=== PATIENT | male | born 1940 | race Caucasian/White ===

== ENCOUNTER 2021-06-08 18:04 | Emergency (ER) | payer MEDICARE, OTHER ==
[2021-06-08] MEDS ORDERED: Sodium Chloride 0.9% 10 ML Syringe FLUSH PRN (18:12)
--- NOTE | 2021-06-08 18:26 | EDM.PDOC ---
ED HPI GENERAL MEDICAL PROBLEM - General Stated Complaint: NO FEELING IN LEFT ARM (NUMB) Time Seen by Provider: 06/08/21 18:37 - History of Present Illness INITIAL COMMENTS - FREE TEXT/NARRATIVE: Pt. presents to ER with complaints of vertigo and lack of coordination in L upper extremity. Pt. states that he noticed the symptoms at around 11:00 this AM. He states that he had to drive [place] portion [place] the [place] and when he stopped to get something from his wallet, he had troubles removing the object. He states that he also notes problems with balance, particularly when he closes his eyes. He was witnessed stumbling in ER when he removed a shirt over his head. Denies any numbness in the extremity. Denies any facial droop. He has not had any problems with dysarthria or aphasia. Pt. denies any recent head trauma. No neck pain. 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 Denies any acute vision loss or change. Pt. denies any history of cerebrovascular disease. He states that he has a history of diabetes, asthma, and COPD, but is unable to recall the names. He is not currently anticoagulated. Onset: Today Onset Date: 06/08/21 Location: Reports: Head, Generalized - Related Data Allergies Allergy/AdvReac Type Severity Reaction Status Date / Time No Known Allergies Allergy Verified 06/08/21 18:11 ED ROS GENERAL - Review of Systems Review Of Systems: See Below Constitutional: Reports: No Symptoms HEENT: Reports: No Symptoms Respiratory: Reports: No Symptoms Cardiovascular: Reports: No Symptoms Endocrine: Reports: No Symptoms GI/Abdominal: Reports: No Symptoms : Reports: No Symptoms Musculoskeletal: Reports: No Symptoms Skin: Reports: No Symptoms Neurological: Reports: Dizziness, Other (lack of coordination, L upper extremity.). Denies: Confusion, Headache, Numbness, Paresthesia, Pre-Existing Deficit, Seizure, Syncope, Tingling, Tremors, Trouble Speaking, Difficulty Walking, Weakness, Change in Speech, Gait Disturbance Psychiatric: Reports: No Symptoms Hematologic/Lymphatic: Reports: No Symptoms Immunologic: Reports: No Symptoms ED EXAM, GENERAL - Physical Exam Exam: See Below Exam Limited By: No Limitations General Appearance: Alert, WD/WN, No Apparent Distress Eye Exam: Bilateral Eye: EOMI Head: Atraumatic, Normocephalic Neck: Normal Inspection, Supple, Non-Tender, Full Range of Motion Respiratory/Chest: No Respiratory Distress, Lungs Clear, No Accessory Muscle Use, Chest Non-Tender, Decreased Breath Sounds Cardiovascular: Regular Rate, Rhythm, No Edema, No JVD, No Murmur, No Rub Peripheral Pulses: 4+: Radial (L) GI/Abdominal: Soft, Non-Tender, No Distention, No Mass (Male) Exam: Deferred Rectal (Males) Exam: Deferred Back Exam: Normal Inspection, Full Range of Motion Extremities: Normal Inspection, Normal Range of Motion, Non-Tender, No Pedal Edema, Normal Capillary Refill Neurological: Alert, Oriented, CN II-XII Intact, Normal Cognition, Normal Gait, Normal Reflexes, No Motor/Sensory Deficits, Sensory/Motor Deficit, Other (lack of coordination with finger to nose L upper extremity) Psychiatric: Normal Affect, Normal Mood Skin Exam: Warm, Dry, Intact, Normal Color, No Rash #1 Interpretation Rhythm: NSR [place]: Normal P-Wave: Present QRS: Normal ST-T: Normal QT: Normal Course - Vital Signs Last Recorded V/S: Last Vital Signs Temp 37.0 C 06/08/21 18:37 Pulse 73 06/08/21 18:37 Resp 18 06/08/21 18:37 BP 137/78 06/08/21 18:37 Pulse Ox 97 06/08/21 18:37 - Orders/Labs/Meds Orders: Active Orders 24 hr Category Date Time Status Ang Head [CT] Stat Exams 06/08/21 19:51 Ordered Ang Neck [CT] Stat Exams 06/08/21 19:52 Ordered Sodium Chloride 0.9% [Saline Flush] Med 06/08/21 18:12 Active 10 ml FLUSH ASDIRECTED PRN Peripheral IV Insertion Adult [OM.PC] Routine Oth 06/08/21 18:12 Ordered Medication Orders Sodium Chloride (Sodium Chloride 0.9% 10 Ml Syringe) 10 ml FLUSH ASDIRECTED PRN PRN Reason: Keep Vein Open Labs: Laboratory Tests 06/08/21 06/08/21 06/08/21 Range/Units 18:20 18:20 18:27 WBC 7.0 (4.0-10.0) x10^3/uL RBC 4.63 (4.5-6.0) x10^6/uL Hgb 14.3 (14.0-18.0) g/dL Hct 42.7 (40.0-52.0) % MCV 92.2 (78.0-93.0) fL MCH 30.9 (26.0-32.0) pg MCHC 33.5 (32.0-36.0) g/dL RDW Coeff of Elvis 13.2 (10.0-15.0) % Plt Count 218 (130-400) x10^3/uL Immature Gran % (Auto) 0.40 (0.00-0.43) % Neut % (Auto) 52.1 (50.0-80.0) % Lymph % (Auto) 29.3 (25.0-50.0) % [place] % (Auto) 12.3 H (2.0-11.0) % Eos % (Auto) 5.3 H (0.0-4.0) % Baso % (Auto) 0.6 (0.2-1.2) % Neut # (Auto) 3.7 (1.8-7.7) x10^3/uL Lymph # (Auto) 2.1 (1.0-4.8) x10^3/uL [place] # (Auto) 0.9 H (0.0-0.8) x10^3/uL Eos # (Auto) 0.4 (0.0-0.5) x10^3/uL Baso # (Auto) 0.0 (0.0-0.2) x10^3/uL Immature Gran # (Auto) 0.03 (0.00-0.07) x10^3/uL PT 9.9 (9.9-12.5) SEC INR 0.9 L (2.0-3.5) Sodium 143 (136-145) mmol/L Potassium 4.0 (3.5-5.1) mmol/L Chloride 107 (98-107) mmol/L Carbon Dioxide 28 (21-32) mmol/L Anion Gap 12.0 (5-15) mmol/L BUN 26 H (7-18) mg/dL Creatinine 1.0 (0.70-1.30) mg/dL Est Cr Clr Drug Dosing 65.74 mL/min Estimated GFR (MDRD) > 60 Glucose 135 H (70-99) mg/dL Calcium 9.4 (8.5-10.1) mg/dL Corrected Calcium 10.0 (8.5-10.1) mg/dL Phosphorus 2.4 L (2.6-4.7) mg/dL Magnesium 1.9 (1.8-2.4) mg/dL Total Bilirubin 0.2 (0.2-1.0) mg/dL AST 12 L (15-37) U/L ALT 14 L (16-63) U/L Alkaline Phosphatase 72 (46-116) U/L Troponin I High Sens 5 (<=76) ng/L C-Reactive Protein < 0.2 (<=0.9) mg/dL Total Protein 6.6 (6.4-8.2) g/dL Albumin 3.3 L (3.4-5.0) g/dL Globulin 3.3 Albumin/Globulin Ratio 1.00 TSH, Ultra Sensitive 1.477 (0.358-3.74) uIU/mL Ethyl Alcohol < 3 (0-3) mg/dL Meds: Medications Generic Name Dose Route Start Last Admin Trade Name Freq PRN Reason Stop Dose Admin Sodium Chloride 10 ml 06/08/21 18:12 Sodium Chloride 0.9% 10 Ml Syringe FLUSH ASDIRECTED PRN Keep Vein Open Discontinued Medications Generic Name Dose Route Start Last Admin Trade Name Freq PRN Reason Stop Dose Admin Aspirin 324 mg 06/08/21 20:01 06/08/21 20:10 Aspirin 81 Mg Tab.Chew PO 06/08/21 20:02 324 mg ONETIME ONE Administration Clopidogrel Bisulfate 75 mg 06/08/21 20:01 06/08/21 20:10 Clopidogrel 75 Mg Tab PO 06/08/21 20:02 75 mg ONETIME ONE Administration - Radiology Interpretation Free Text/Narrative:: CT brain without contrast negative for acute pathology. CTA head and neck obtained. Scattered calcified plaque in the bilateral intracranial internal carotid arteries and R vertebral artery without significant stenosis. Otherwise, patent head CTA. Less than 50% stenosis on the R, no significant stenosis on the left in the neck by NASCET criteria. Departure - Departure Time of Disposition: 21:21 Disposition: Home, Self-Care 01 Clinical Impression: CVA, Cerebrovascular accident - Discharge Information Instructions: Stroke Prevention, Clopidogrel tablets, Rehabilitation After a Stroke, Adult, Ischemic Stroke, Aspirin, ASA oral tablets Referrals: Joy Rae DO [Primary Care Provider] - Forms: ED Department Discharge Additional Instructions: I spoke with Dr. Avitia, the neurologist at [facility]. He feels you have had a stroke. He suggests the following medications: Plavix 75mg 1 tab daily Aspirin 81mg 1 tab daily I will be in contact with [facility] to get you set up for an echocardiogram of your heart, an MRI of your brain, an ultrasound of the vessels in our neck, and referrals to neurology and physical therapy. Return to ER if you have increased weakness, troubles walking, speaking, or seeing. It is very important that you come in as soon as the symptoms start, as we can give you medication for a severe stroke in the symptoms onset is within a certain timeframe (HOMERO, ideally within 3 hours, but come in anyway). Sepsis Event Note (ED) - Focused Exam Vital Signs: Vital Signs Temp Pulse Resp BP Pulse Ox 06/08/21 18:37 37.0 C 73 18 137/78 97 - Problem List Review Problem List Initiated/Reviewed/Updated: Yes - My Orders Last 24 Hours: My Active Orders 06/08/21 18:12 Sodium Chloride 0.9% [Saline Flush] 10 ml FLUSH ASDIRECTED PRN Peripheral IV Insertion Adult [OM.PC] Routine 06/08/21 19:51 Ang Head [CT] Stat 06/08/21 19:52 Ang Neck [CT] Stat - Assessment/Plan Last 24 Hours: My Active Orders 06/08/21 18:12 Sodium Chloride 0.9% [Saline Flush] 10 ml FLUSH ASDIRECTED PRN Peripheral IV Insertion Adult [OM.PC] Routine 06/08/21 19:51 Ang Head [CT] Stat 06/08/21 19:52 Ang Neck [CT] Stat Plan: Case discussed with Dr. Avitia. Pt. is not a candidate for TPA, primarily due to being out of time window, but also due to minimal severity of symptoms. Advised starting patient on plavix and aspirin. He was set up for outpatient echo, MRI of brain, carotid US, neuro referral, and physical therapy. Discussed the importance of seeking medical attention immediately on onset of symptoms, particularly problems with speech, ambulation, unilateral weakness, vision loss or change.
[2021-06-08 19:02] LABS: CHLORIDE,CL 107 mmol/L (98-107); SODIUM,NA 143 mmol/L (136-145)
--- NOTE | 2021-06-08 19:25 | CT ---
[id number] CT/CT Head WO IV EXAM: CT Head WO IV CLINICAL DATA: LEFT ARM WEAKNESS COMPARISON STUDY: None FINDINGS: No intracranial hemorrhage, extra-axial fluid collection, mass, or acute ischemia. No hydrocephalus. Calvarium intact. 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 Paranasal sinus mucosal thickening. Partial opacification of the left mastoid air cells. IMPRESSION: No acute intracranial findings. Dustin Carrington MD 06/08/211922 Thank you for allowing us to participate in the care of your patient.
[2021-06-08] MEDS ORDERED: Aspirin 81 MG Tab.Chew PO ONE (20:01)
[2021-06-08] MEDS ORDERED: Clopidogrel 75 MG Tab PO ONE (20:01)
[2021-06-08] MEDS ORDERED: Iopamidol 755 Mg/ML 100 ML Bottle IVPUSH ONE (20:30)
--- NOTE | 2021-06-09 08:48 | CT ---
[id number] CT/CTA Head Neck EXAM: CT angiogram head and neck INDICATION: DECREASED COORDINATION COMPARISON: None. DISCUSSION: Aortic arch: Aortic and origins of the great vessels were not included in the [id number] of this study. There is hard plaque at the origin of the right subclavian artery and at the origin of the left subclavian with less than 50% stenosis. Right carotid artery: Hard plaque at the bifurcation and in the cavernous segment of the internal carotid artery without significant stenosis. No dissection, aneurysm acute findings. Left carotid artery: Plaque in the cavernous segment of the ICA without significant stenosis. The internal common carotid arteries are otherwise normal in appearance. Right vertebral artery: Scattered hard plaque involving the intracranial segment without significant stenosis, dissection or other acute findings. Left vertebral artery: Diminutive in caliber ending in PICA. No acute dissection, aneurysmal dilation or focal stenosis is identified. Basilar artery: Normal in caliber. No significant stenosis or other abnormality. [place] of [place]: Conventional morphology. No vessel cut off, significant stenosis, aneurysm or vascular malformation is identified. Dural sinuses, jugular veins and cerebral veins: Limited evaluation of the cerebral veins, dural sinuses and jugular veins is unremarkable. Brain parenchyma: Unremarkable. The neck soft tissues: Unremarkable. Osseous structures: Disc degeneration C4-C5 and C5-C6. IMPRESSION: 1. No acute findings. 2. Scattered atherosclerotic plaque in both carotid systems and the right vertebral artery without shift and stenosis. Nehemiah Joaquin MD 06/09/21 [id number] Thank you for allowing us to participate in the care of your patient.
== END 2021-06-08 22:24 | disposition home or self-care (01) ==
LOC: VM.ED 18:04
DX: I63.9 Cerebral infarction, unspecified (principal); E11.9 Type 2 diabetes mellitus without complications; J44.9 Chronic obstructive pulmonary disease, unspecified
CPT/HCPCS: 36415; 70450; 70496; 80053; 80307; 83735; 84100; 84443; 84484; 85025; 85610; 86140; 93005; 99284; A9270; Q9967

== ENCOUNTER 2021-08-01 00:50 | Emergency (ER) | payer MEDICARE, OTHER ==
[2021-08-01] MEDS ORDERED: Cephalexin 500 MG Cap PO ONE ×2 (01:30)
[2021-08-01] MEDS ORDERED: Doxycycline 100 MG Cap PO ONE (01:34)
[2021-08-01 01:48] LABS: CHLORIDE,CL 105 mmol/L (98-107); SODIUM,NA 139 mmol/L (136-145)
== END 2021-08-01 02:20 | disposition home or self-care (01) ==
LOC: VM.ED 00:50
DX: E11.621 Type 2 diabetes mellitus with foot ulcer (principal); L97.421 Non-pressure chronic ulcer of left heel and midfoot limited to breakdown of skin; J45.909 Unspecified asthma, uncomplicated; Z79.84 Long term (current) use of oral hypoglycemic drugs; Z79.899 Other long term (current) drug therapy
CPT/HCPCS: 36415; 80048; 83605; 84145; 85025; 86140; 99283; 99284; A9270-GY

== ENCOUNTER 2022-06-23 22:01 | Emergency (ER) | payer MEDICARE, OTHER ==
[2022-06-23] MEDS ORDERED: Sodium Chloride 0.9% 10 ML Syringe FLUSH PRN (22:37)
[2022-06-23 23:22] LABS: PTT,PARTIAL THROMBOPLSTIN TIME 25.2 SEC (20.5-30.9)
[2022-06-23 23:24] LABS: CHLORIDE,CL 108 mmol/L (98-107); SODIUM,NA 143 mmol/L (136-145)
[2022-06-23 23:28] LABS: ESTIMATED GFR 47 mL/min (>=60)
[2022-06-24] MEDS: Take Home: Acetaminophen/HYDROcodone 325-5 MG, 5 Tab Pack PO ONE (00:45)
[2022-06-24] MEDS: Tamsulosin 0.4 MG Cap.ER PO ONE (00:46)
== END 2022-06-24 00:56 | disposition home or self-care (01) ==
LOC: VM.ED 22:01
DX: N13.2 Hydronephrosis with renal and ureteral calculous obstruction (principal); E11.9 Type 2 diabetes mellitus without complications; Z86.73 Personal history of transient ischemic attack (TIA), and cerebral infarction without residual deficits; Z79.82 Long term (current) use of aspirin; Z79.02 Long term (current) use of antithrombotics/antiplatelets
CPT/HCPCS: 36415; 74176; 80053; 81001; 82150; 83690; 83735; 84100; 85025; 85610; 85730; 86140; 99284; A9270